=== PATIENT | male | born 1965 | race Asian ===

== ENCOUNTER 2018-08-29 14:44 | Emergency (ER) | payer OTHER ==
[2018-08-29 14:49] VITALS: Ht 177.8 cm
[2018-08-29 15:13] LABS: BASOPHIL % 0.6 % (0-2); PLATELET COUNT 157 x10^3mcL (130-400); RED CELL DISTRIBUTION WIDTH 12.7 % (11.5-14.5)
[2018-08-29 15:20] LABS: CALCIUM 8.3 mg/dL (8.5-10.1); CREATININE SERUM 2.2 mg/dL (0.7-1.3)
[2018-08-29 15:26] LABS: ALBUMIN 3.5 g/dL (3.4-5.0); BILIRUBIN TOTAL 0.92 mg/dL (0.20-1.00); MAGNESIUM 1.7 mg/dL (1.8-2.4); TOTAL PROTEIN, SERUM 6.9 g/dL (6.4-8.2)
[2018-08-29 18:34] VITALS: BP 131/89
== END 2018-08-29 18:34 | disposition home or self-care (01) ==
LOC: ED 14:44
PROVIDERS: Emergency Medicine
DX: R00.2 Palpitations (principal); E83.42 Hypomagnesemia; I12.9 Hypertensive chronic kidney disease with stage 1 through stage 4 chronic kidney disease, or unspecified chronic kidney disease; Z88.0 Allergy status to penicillin; N18.9 Chronic kidney disease, unspecified
CPT/HCPCS: J3475; J8597; Q0092